=== PATIENT | male | born 1960 | race Caucasian/White ===

== ENCOUNTER 2016-10-26 12:57 | Emergency (ER) | payer BC ==
[~2016-10-26] VITALS: Ht 175.3 cm; Wt 90.7 kg
== END 2016-10-26 15:34 | disposition home or self-care (01) ==
LOC: CFTX 12:57 → CED 12:57 → CFTX 14:11
DX: S61.412A Laceration without foreign body of left hand, initial encounter (principal); Z88.2 Allergy status to sulfonamides; Z23 Encounter for immunization; W26.9XXA Contact with unspecified sharp object(s), initial encounter; Y92.009 Unspecified place in unspecified non-institutional (private) residence as the place of occurrence of the external cause
CPT/HCPCS: 12002; 90471; 90715; 99283